=== PATIENT | female | born 1970 | race Caucasian/White ===

== ENCOUNTER 2020-10-06 00:07 | Emergency (ER) | payer BC ==
[~2020-10-06] VITALS: Ht 157.5 cm; Wt 90.0 kg
[2020-10-06 01:40] VITALS: BP 155/92
== END 2020-10-06 01:40 | disposition home or self-care (01) | DRG 301 ==
LOC: ED 00:07
DX: I83.891 Varicose veins of right lower extremity with other complications (principal)